=== PATIENT | female | born 1990 | race Two or more races ===

== ENCOUNTER 2018-11-29 18:51 | Emergency (ER) | payer MEDICAID ==
[~2018-11-29] VITALS: Ht 160 cm; Wt 87.1 kg
[2018-11-29 18:59] VITALS: BP 133/82
[2018-11-29] MEDS ORDERED: DEXAMETHASONE SOD PHOS 20 MG/5 ML VIAL. IM ONE (19:15)
[2018-11-29] MEDS ORDERED: FAMOTIDINE 20 MG TABLET. PO ONE (19:15)
[2018-11-29] MEDS ORDERED: diphenhydrAMINE HCL 25 MG CAPSULE PO ONE ×2 (19:15→19:34)
[2018-11-29] MEDS ORDERED: FAMOTIDINE 20 MG TABLET. ONE (19:33)
[2018-11-29] MEDS ORDERED: DEXAMETHASONE SOD PHOS 20 MG/5 ML VIAL. ONE (19:34)
[2018-11-29] MEDS ORDERED: FAMO20TA5 PO (19:35)
[2018-11-29] MEDS ORDERED: CETI10TA22 PO (19:35)
[2018-11-29] MEDS ORDERED: PRED-220 PO (19:35)
--- NOTE | 2018-11-29 19:35 | PHYS DOC ---
Past Medical History Past Medical History: No Pertinent History (IDALMIS CLEANING APRN) Past Surgical History: No Surgical History (IDALMIS CLEANING APRN) Alcohol Use: None Drug Use: None (IDALMIS CLEANING APRN) Adult General Chief Complaint Chief Complaint: ALLERGIC REACTION HPI HPI Patient is a 28 year old female who presents to the ED today with what she believes it's poison jhon rash that began 2 weeks ago after cleaning her yard. Patient states she was on short term prednisone for a couple days ago. She states while on prednisone the rash cleared and it just returned after prednisone was completed. Patient denies any difficulty breathing or swallowing throat or tongue swelling. (IDALMIS CLEANING APRN) Review of Systems Review of Systems Constitutional: Denies fever or chills [] Musculoskeletal: Denies back pain or joint pain [] Integument: Reports rash Neurologic: Denies headache, focal weakness or sensory changes [] All other systems were reviewed and found to be within normal limits, except as documented in this note. (IDALMIS CLEANING APRN) Current Medications Current Medications Current Medications Medications (Trade) Dose Ordered Sig/Eddie Start Time Stop Time Status Last Admin Dose Admin Dexamethasone Sodium Phosphate (Decadron) 20 mg STK-MED ONCE 11/29/18 19:34 11/29/18 19:35 DC Diphenhydramine HCl (Benadryl) 25 mg STK-MED ONCE 11/29/18 19:34 11/29/18 19:35 DC Famotidine (Pepcid) 20 mg STK-MED ONCE 11/29/18 19:33 11/29/18 19:34 DC (STEPHON PINA MD) Allergies Allergies Allergies Coded Allergies Type Severity Reaction Last Updated Verified No Known Drug Allergies 11/29/18 No (STEPHON PINA MD) Physical Exam Physical Exam Constitutional: Well developed, well nourished, no acute distress, non-toxic appearance. [] HENT: Normocephalic, atraumatic, bilateral external ears normal, oropharynx m oist, no oral exudates, nose normal. [] Eyes: PERRLA, EOMI, conjunctiva normal, no discharge. [] Neck: Normal range of motion, no tenderness, supple, no stridor. [] Cardiovascular:Heart rate regular rhythm, no murmur [] Lungs & Thorax: Bilateral breath sounds clear to auscultation [] Abdomen: Bowel sounds normal, soft, no tenderness, no masses, no pulsatile masses. [] Skin: Warm, dry, mild amount of erythematous rash in patient's face, neck, small amount of similar rash on the chest and bilateral upper extremities. Lower extremities not examined. Back: No tenderness, no CVA tenderness. [] Extremities: No tenderness, no cyanosis, no clubbing, ROM intact, no edema. [] Neurologic: Alert and oriented X 3, normal motor function, normal sensory function, no focal deficits noted. [] Psychologic: Affect normal, judgement normal, mood normal. [] (IDALMIS CLEANING APRN) Current Patient Data Vital Signs Vital Signs Date Time Temp Pulse Resp B/P (MAP) Pulse Ox O2 Delivery O2 Flow Rate FiO2 11/29/18 18:59 99.5 107 16 133/82 (99) 97 Room Air 99.5 (STEPHON PINA MD) EKG EKG [] (IDALMIS CLEANING APRN) Radiology/Procedures Radiology/Procedures [] (IDALMIS CLEANING APRN) Course & Med Decision Making Course & Med Decision Making Pertinent Labs and Imaging studies reviewed. (See chart for details) Patient has contact dermatitis rash from poison jhon. She was on a short-term steroid which she completed and the rash returned. She'll be put on a longer tapered dose of prednisone, Pepcid and Zyrtec. Follow-up with primary care doctor in 1-2 weeks. (IDALMIS CLEANING APRN) Course & Med Decision Making Staff Physician Addendum: I was working in the ER during the course of this patient's visit. I was available for consultation as needed, but I was not directly involved in the care of this patient. (STEPHON PINA MD) Dragon Disclaimer Dragon Disclaimer This electronic medical record was generated, in whole or in part, using a voice recognition dictation system. (IDALMIS CLEANING APRN) Departure Departure Impression: Primary Impression: Contact dermatitis due to poison jhon Disposition: HOME, SELF-CARE Condition: STABLE Referrals: PEGGY GONZALEZ MD follow-up with your doctor in 1-2 weeks Patient Instructions: Contact Dermatitis, [id number] Additional Instructions: You were evaluated in the emergency room with contact dermatitis rash likely from poison jhon. Take the prescribed medications as ordered. Please follow-up with your doctor in 1-2 weeks as needed. Scripts Cetirizine Hcl (ZYRTEC) 10 Mg Tablet 1 TAB PO DAILY, #30 TAB 2 Refills Prov: IDALMIS CLEANING APRN 11/29/18 Famotidine (FAMOTIDINE) 20 Mg Tablet 20 MG PO DAILY, #14 TAB Prov: IDALMIS CLEANING APRN 11/29/18 Prednisone (PREDNISONE ) 10 Mg Tablet 10 MG PO UD for PREDNISONE TAPER, #39 TAB 0 Refills Take 3 tablets by mouth twice a day for 3 days, then take 2 tablets by mouth twice a day for 3 days, then take 1 tablet by mouth twice a day for 3 days, then take 1 tablet by mouth daily x 3 days, then stop. Prov: IDALMIS CLEANING APRN 11/29/18 IDALMIS CLEANING APRN Nov 29, 2018 19:35 STEPHON PINA MD Nov 30, 2018 00:56
== END 2018-11-29 20:10 | disposition home or self-care (01) ==
LOC: ER 18:51
DX: L23.7 Allergic contact dermatitis due to plants, except food (principal)
CPT/HCPCS: 96372; 99283; J1100; Q0163

== ENCOUNTER 2019-09-04 09:23 | Day surgery (SDC) | payer MEDICAID ==
[~2019-09-04] VITALS: Ht 165.1 cm; Wt 92.1 kg
[~2019-09-04 09:23] MED LIST: CETI10TA24 PO; FAMO20TA5 PO; FOLI0.8C PO; HYDROmorphone 2 MG/ML VIAL IV PRN; IV RINGERS,LACTATED 1000ML 1,000 ML IV SCH; LEVO125T5 PO; MORPHINE SULFATE 2 MG/ML VIAL. IV PRN; ONDANSETRON PF 4 MG/2 ML VIAL. IV PRN; PNV1TABL78 PO; PRED-220 PO; PROCHLORPERAZINE 10 MG/2 ML VIAL. IV PRN; fentaNYL PF VIAL 100 MCG/2 ML VIAL IV PRN
[2019-09-04] MEDS ORDERED: DEXAMETHASONE SOD PHOS 4 MG/ML VIAL ONE (10:49)
[2019-09-04] MEDS ORDERED: LIDOCAINE 2% PF 5 ML VIAL. ONE (10:49)
[2019-09-04] MEDS ORDERED: ONDANSETRON PF 4 MG/2 ML VIAL. ONE (10:49)
[2019-09-04] MEDS ORDERED: PROPOFOL 10 MG/ML (20ML) VIAL. IV ONE (10:49)
[2019-09-04] MEDS ORDERED: MIDAZOLAM HCL/PF 2 MG/2 ML VIAL. ONE (10:50)
[2019-09-04] MEDS ORDERED: fentaNYL PF VIAL 100 MCG/2 ML VIAL ONE ×2 (10:50→12:06)
[2019-09-04] MEDS ORDERED: DOXYCYCLINE HYCLATE 100 MG TABLET PO PRN (11:30)
[2019-09-04 11:33] LABS: BASO % 1 % (0-3); EOS # 0.2 x10^3/uL (0.0-0.7); EOS % 2 % (0-3); HEMATOCRIT 36.6 % (36.0-47.0); HEMOGLOBIN 12.5 g/dL (12.0-15.5); LYMPH # 1.8 x10^3/uL (1.0-4.8); LYMPH % 21 % (24-48); MEAN CORPUSCULAR HEMOGLOBIN 30 pg (25-35); MEAN CORPUSCULAR HGB CONC 34 g/dL (31-37); MEAN CORPUSCULAR VOLUME 87 fL (79-100); MONO # 0.5 x10^3/uL (0.0-1.1); MONO % 6 % (0-9); NEUT # 6.1 x10^3/uL (1.8-7.7); NEUT % 71 % (31-73); PLATELET COUNT 286 x10^3/uL (140-400); RED BLOOD COUNT 4.21 x10^6/uL (3.50-5.40); RED CELL DISTRIBUTION WIDTH 12.6 % (11.5-14.5); WHITE BLOOD COUNT 8.6 x10^3/uL (4.0-11.0)
[2019-09-04] MEDS ORDERED: KETOROLAC 30 MG/ML VIAL. ONE (11:51)
[2019-09-04] MEDS ORDERED: SEVOFLURANE 31 TO 60 MINUTES. IH ONE (12:04)
--- NOTE | 2019-09-04 12:11 | PDOC4 ---
OPERATIVE NOTE: PreOp Dx: Empty gestational sac PostOp: same Procedure: Suction D&C Surgeons: Jessica Salas Anesthesia: GETA EBL: Minimal (100cc) Path: POC Complications: None PENNY SALAS MD September 04, 2019 12:11
[2019-09-04] MEDS ORDERED: OXYC1TAB15 PO (12:15)
[2019-09-04] MEDS ORDERED: IBUP-1060 PO (12:15)
[2019-09-04] MEDS ORDERED: oxyCODONE/APAP 5/325 1 TAB TABLET ONE (12:27)
[2019-09-04] MEDS ORDERED: oxyCODONE/APAP 5/325 1 TAB TABLET PO ONE (12:30)
[2019-09-04 12:50] VITALS: BP 120/67
--- NOTE | 2019-09-04 13:19 | OP ---
DATE OF SURGERY: 09/04/2019 PREOPERATIVE DIAGNOSIS: Empty gestational sac . POSTOPERATIVE DIAGNOSIS: Empty gestational sac . PROCEDURE: Suction dilation and curettage. SURGEON: Kiet Salas MD ANESTHESIA: General endotracheal intubation. ESTIMATED BLOOD LOSS: Minimal. SPECIMENS REMOVED: Products of conception. COMPLICATIONS: None. INDICATIONS: The patient is a 29-year-old 3, para 2-0-0-2 with a last menstrual period of 06/04/2019, who presented yesterday, 09/03/2019, for an office visit. The patient had been seen two times prior with the efforts to determine if the patient had a viable . The patient was first seen on 07/23/2019 after a positive home test. Bedside ultrasound was performed, but no pole or gestational sac could be visualized at the time. This was surprising based on her beta hCG at the time, which was 9162. This was expressed to the patient. The patient returned on 08/20/2019 where a bedside ultrasound was performed. Her ultrasound revealed a gestational sac measuring approximately 7 weeks and 5 days, but no pole was seen at the time. At the time, the patient was informed that this could either be early or empty gestational sac. The patient was originally scheduled for a formal ultrasound in Radiology on 09/02/2019, but had to be rescheduled due to changes related to the coronavirus. The patient returned to the office on 09/03/2019 where a bedside ultrasound was performed along with a transvaginal ultrasound. At this time, a regular gestational sac was revealed and the sac only measured approximately 8.2. The patient was informed that this was a miscarriage and treatment options were discussed. The patient ultimately desired definitive management. DESCRIPTION OF PROCEDURE: The patient was taken to the operating room where general endotracheal intubation was obtained without difficulty. After the patient was prepped and draped in normal sterile fashion, a speculum was placed to visualize the cervix. A single-tooth tenaculum was then placed on the anterior lip of the cervix. At that point, the cervix was serially dilated to allow for a 9-mm suction curette to be placed. At that point, once it was sufficiently dilated, the suction curette was then advanced to the uterine fundus, which was sounded to 13 cm prior. Suction device was then activated and curettage was then rotated to clear all products of conception. After 3 passes, minimal amounts of product of conception or blood were returning. At that point, sharp curettage was performed until gritty texture was felt in all 4 quadrants and the ultrasound was used to check the contents of the uterus where nothing was seen. At that point, good hemostasis was noted, so the tenaculum was removed as well. Good hemostasis was noted from the tenaculum site. The patient was then brought to the recovery room in stable condition. Prior to the procedure, the patient was given 200 mg of doxycycline p.o. KIET SALAS MD DR: PAULA/dotty JOB#: [id number] / [id number] DAVON
== END 2019-09-04 13:04 | disposition home or self-care (01) ==
LOC: SURG 09:23
PROVIDERS: ATTEND Obstetrics & Gynecology
DX: O02.1 Missed abortion (principal); Z3A.01 Less than 8 weeks gestation of pregnancy; Z79.899 Other long term (current) drug therapy
CPT/HCPCS: 36415; 59820; 85025; A7015; J1100; J1885; J2250; J2405; J2704; J3010; J3490

== ENCOUNTER → 2019-09-26 | Outpatient (CLI) | payer MEDICAID ==
[2019-09-04 12:50] VITALS: BP 120/67
[~2019-09-26] MED LIST changes: -HYDROmorphone 2 MG/ML VIAL IV PRN; +IBUP-1060 PO; -IV RINGERS,LACTATED 1000ML 1,000 ML IV SCH; -MORPHINE SULFATE 2 MG/ML VIAL. IV PRN; -ONDANSETRON PF 4 MG/2 ML VIAL. IV PRN; +OXYC1TAB15 PO; -PROCHLORPERAZINE 10 MG/2 ML VIAL. IV PRN; -fentaNYL PF VIAL 100 MCG/2 ML VIAL IV PRN
--- NOTE | 2019-09-26 12:00 | RAD ---
EXAM: Pelvis and right hip, 3 views. HISTORY: Pain. COMPARISON: None. FINDINGS: A frontal view the pelvis and 2 views of the right hip are obtained. There is no fracture, dislocation or subluxation. There are few small incidental bone islands. IMPRESSION: No acute osseous finding. Electronically signed by: Ammy Holley MD (09/26/2019 11:57 AM) [id number]
== END | disposition home or self-care (01) ==
LOC: RAD 11:16
PROVIDERS: ATTEND Family Medicine
DX: M25.551 Pain in right hip (principal)
CPT/HCPCS: 73502